=== PATIENT | male | born 1975 | race Caucasian/White ===

== ENCOUNTER → 2017-10-12 | Day surgery (SDC) | payer OTHER ==
[~2017-10-12] VITALS: Ht 175.3 cm; Wt 91.9 kg
[~2017-10-12] MED LIST: *HYDROmorphone PF 1 MG VIAL PERIprocedural Use ONLY ONE; BACITRACIN TOP OINT 15 GM TUBE ONE; BUPIVACAINE HCL PF 0.25% 30 ML VIAL ONE; CHLORHEXIDINE GLUCONATE 2 % 1 PACK (2 CLOTHS) TOPICAL PRN; DEXAMETHASONE SOD PHOS 4 MG/ML VIAL IV ONE; DO NOT ADM ANY ANTICOAGULANT DRUGS PRN; GLYCOPYRROLATE 1 MG/5 ML SYRINGE IV PUSH ONE; HYDROmorphone HCL PF 2 MG/ML VIAL IV PRN; LACTATED RINGER S IV ONE; LACTATED RINGER'S 1000 ML IV PRN; LIDOCAINE HCL 1% PF 5 ML SYRINGE OTHER ONE; LIDOCAINE HCL 2% 50 ML VIAL ONE; MELO7.5T27 PO; METOPROLOL TARTRATE 25 MG TAB PO PRN; MIDAZOLAM HCL 2 MG/2 ML VIAL ONE; MORPHINE SULFATE 4 MG/ML INJ ONE; MULT-65 PO; NEOSTIGMINE 5 MG/5 ML SYRINGE IV PUSH ONE; OMEP20TA93 PO; ONDANSETRON HCL 4 MG/2 ML VIAL IV ONE; ONDANSETRON HCL 4 MG/2 ML VIAL IV PUSH PRN; PHENYLEPH/NS 1000 MCG/10 ML SYR IV ONE; POVIDONE IODINE 5% (ANTISEPSIS KIT) 4 APPLICATIONS EACH NARE PRN; PROPOFOL 200 MG/20 ML AMP IV ONE; ROCURONIUM INJ 50 MG/5 ML SYRINGE IV PUSH ONE; SODIUM CHLORID 0.9% 500 ML IV PRN; ceFAZolin 2 GM PREMIX 50 ML IV SCH; oxyCODONE/ACETAMINOPHEN 5 MG/325 MG TAB ONE
[2017-10-12 12:15] VITALS: BP 157/94; PULSE 98; RESP 16; TEMP 97.8; O2SAT 95
--- NOTE | 2017-10-13 19:32 | MP ---
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 PROCEDURE 1. Left thumb ulnar collateral ligament reconstruction using Arthrex internal brace 2. Volar plate repair left thumb metacarpalphalangeal joint SURGEON Dr. Dominic Parson ANESTHESIA General and local TOURNIQUET TIME Approximately 74 minutes at 250 mmHg IMPLANTS One Arthrex internal brace with swivel-lock suture anchors INDICATIONS FOR PROCEDURE Alexander Zhou is a 42-year-old right-hand dominant male who states that he sustained an injury to his left thumb almost two years ago. He reports persistent weakness and difficulty grasping objects with the left thumb. [facility] due to laxity of the ulnar collateral ligament of the left thumb. The patient was noted not to have a palmaris longus on the left wrist. Treatment options were discussed with the patient. He requested surgical intervention. Risks were explained which are not limited to wound complications, infection, paresthesias, stiffness, pain, re-rupture of the repair and he elected to proceed. DESCRIPTION OF PROCEDURE The patient was identified in the preoperative holding area and the correct extremity was marked. The patient was taken to the operating room where anesthesia was induced. Left upper extremity was prepped and draped in normal sterile fashion. A curvilinear incision was made over the ulnar border of the left thumb metacarpal phalangeal joint. Care was taken to protect the sensory nerve. Tourniquet was inflated to 250 mmHg for approximately 74 minutes. The adductor aponeurosis was incised. There was complete detachment of the ligament from the thumb metacarpal. There was significant scarring. There was some of the ligament attached to the phalanx. This was loosened for later repair. The joint was reduced. The decision was made to use the Arthrex internal brace system due to the chronic nature of the rupture and to use the remaining ligament instead of an allograft. K-wires were initially placed over the thumb metacarpal and phalanx and then over drilled. Then the swivel lock suture anchor was placed proximally and the internal brace was used to reduce the left thumb metacarpal phalangeal joint. The 3-0 FiberWire was used to repair the remaining ligament underneath the internal brace. This provided excellent stability to the thumb. Again, the FiberWire was used to repair any remaining ligament. PDS was used to repair the capsule and adductor aponeurosis. Care was taken to protect the extensor pollicis longus throughout the procedure. Tourniquet was released. Hemostasis was obtained. There was less than 2-second capillary refill to the thumb. Approximately 8 mL of 2% lidocaine without epinephrine was used for local anesthesia of the thumb. The patient was placed into a thumb spica splint and awoken from anesthesia without any complications. I will see him in two weeks for suture removal and he will remain in a splint made by our therapist for approximately another four weeks. He understands he will likely have stiffness over the thumb, but hopefully this will reconstruct the stability. again, the skin was closed with Monocryl and nylon. MD WADE Daniels/ /11:09 AM /7:16 PM MAREN
== END | disposition home or self-care (01) ==
LOC: HSDC 05:40
PROVIDERS: ATTEND Orthopaedic Surgery
DX: S53.32XA Traumatic rupture of left ulnar collateral ligament, initial encounter (principal)
CPT/HCPCS: 01810; 26541; 76000; C1713; J0690; J1100; J1170; J2250; J2270; J2370; J2405; J2710; J3010; J7120